=== PATIENT | male | born 1975 | race Caucasian/White ===

== ENCOUNTER 2017-11-11 14:56 | Emergency (ER) | payer SELFPAY ==
[~2017-11-11] VITALS: Ht 172.7 cm; Wt 104.2 kg
[2017-11-11] MEDS ORDERED: ASPIRIN 81 MG TABLET CHEW PO ONE (15:30)
[2017-11-11] MEDS ORDERED: MAALOX/HYOSCYAMINE/LIDOCAINE 45 ML BTL PO ONE (15:30)
[2017-11-11 16:03] LABS: BASOPHILS # (AUTO) 0.02 x10^3/uL (0-0.1); BASOPHILS % (AUTO) 0 % (0-1); EOSINOPHILS # (AUTO) 0.06 x10^3/uL (0-0.4); EOSINOPHILS % (AUTO) 1 % (1-7); LYMPHOCYTES # (AUTO) 1.77 x10^3/uL (1-3.4); LYMPHOCYTES % (AUTO) 16 % (22-44); MD NO; MEAN CORPUSCULAR HEMOGLOBIN 31.4 pg (27.5-34.5); MEAN CORPUSCULAR HGB CONC 34.1 g/dL (33.2-36.2); MEAN CORPUSCULAR VOLUME 92.2 fL (81-97); MEAN PLATELET VOLUME 7.7 fL (7.4-10.4); MONOCYTES # (AUTO) 0.55 x10^3/uL (0.2-0.8); MONOCYTES % (AUTO) 5 % (2-9); NEUTROPHILS # (AUTO) 9.01 x10^3/uL (1.8-6.8); NEUTROPHILS % (AUTO) 79 % (42-75); PLATELET COUNT 285 x10^3/uL (130-400); RED CELL DISTRIBUTION WIDTH 13.5 % (9.4-14.8)
[2017-11-11 16:16] LABS: CHLORIDE 107 mmol/L (98-107)
[2017-11-11 16:35] LABS: ALANINE AMINOTRANSFERASE 34 U/L (12-78); ALBUMIN 4.1 g/dL (3.4-5.0); ALKALINE PHOSPHATASE 39 U/L (45-117); ANION GAP 6 mmol/L (5-15); BILIRUBIN,TOTAL 0.9 mg/dL (0.2-1.0); CALCIUM 8.9 mg/dL (8.5-10.1); CREATININE 1.27 mg/dL (0.7-1.3); TROPONIN I < 0.015 ng/mL (0.000-0.045)
[2017-11-11] MEDS ORDERED: MAALOX/HYOSCYAMINE/LIDOCAINE 45 ML BTL ONE (18:17)
[2017-11-11] MEDS ORDERED: ASPIRIN 81 MG TABLET CHEW ONE (18:17)
[2017-11-11 19:29] VITALS: BP 144/98
== END 2017-11-11 19:33 | disposition home or self-care (01) ==
LOC: ED 19:18
DX: R07.89 Other chest pain (principal); K21.9 Gastro-esophageal reflux disease without esophagitis; F17.210 Nicotine dependence, cigarettes, uncomplicated
CPT/HCPCS: 36415; 71046; 80053; 83690; 84484; 85025; 93005; 99285

== ENCOUNTER 2018-04-06 06:31 | Observation (INO) | payer SELFPAY ==
[~2018-04-06] VITALS: Ht 175.3 cm; Wt 133.8 kg
[2018-04-06] MEDS ORDERED: DIPH,PERTUSS(ACELL),TET VAC/PF 0.5 ML IM-VACC ONE ×2 (07:00→09:20)
[2018-04-06 07:08] LABS: BASOPHILS # (AUTO) 0.02 x10^3/uL (0-0.1); BASOPHILS % (AUTO) 0 % (0-1); EOSINOPHILS # (AUTO) 0.12 x10^3/uL (0-0.4); EOSINOPHILS % (AUTO) 1 % (1-7); LYMPHOCYTES # (AUTO) 2.49 x10^3/uL (1-3.4); LYMPHOCYTES % (AUTO) 29 % (22-44); MD NO; MEAN CORPUSCULAR HEMOGLOBIN 31.8 pg (27.5-34.5); MEAN CORPUSCULAR VOLUME 93.5 fL (81-97); MEAN PLATELET VOLUME 7.8 fL (7.4-10.4); MONOCYTES % (AUTO) 6 % (2-9); NEUTROPHILS % (AUTO) 64 % (42-75); PLATELET COUNT 245 x10^3/uL (130-400); RED BLOOD COUNT 5.27 x10^6/uL (4.38-5.82)
[2018-04-06 07:17] LABS: AMPHETAMINE SCREEN, URINE Negative (Negative); BARBITURATE SCREEN, URINE Negative (Negative); BENZODIAZEPINE SCREEN, URINE Negative (Negative); CANNABINOID SCREEN, URINE Negative (Negative); COCAINE SCREEN, URINE Negative (Negative); METHADONE SCREEN, URINE Negative (Negative); OPIATE SCREEN, URINE Negative (Negative)
[2018-04-06 07:20] LABS: ALANINE AMINOTRANSFERASE 39 U/L (12-78); ALBUMIN 3.7 g/dL (3.4-5.0); ANION GAP 9 mmol/L (5-15); CALCIUM 8.2 mg/dL (8.5-10.1); CHLORIDE 107 mmol/L (98-107); CREATININE 1.28 mg/dL (0.7-1.3); SALICYLATE LEVEL 2.5 mg/dL (2.8-20.0)
[2018-04-06 07:22] LABS: ACETAMINOPHEN < 2 mcg/mL (10-30); ALKALINE PHOSPHATASE 35 U/L (45-117); BILIRUBIN,TOTAL 0.7 mg/dL (0.2-1.0); TOTAL PROTEIN 7.2 g/dL (6.4-8.2)
[2018-04-06] MEDS ORDERED: LIDOCAINE-MPF 1%, 5ML ONE (07:45)
[2018-04-06] MEDS ORDERED: ACETAMINOPHEN 325 MG TABLET PO PRN (12:30)
[2018-04-06] MEDS ORDERED: IBUPROFEN 200 MG TABLET PO PRN (12:30)
[2018-04-06 15:50] VITALS: BP 114/66
[2018-04-06] MEDS: NICOTINE 21 MG/24 HR PATCH.TD24 TD SCH (16:12)
[2018-04-06] MEDS: hydrOXyzine 10 MG/5 ML ORAL SOL PO PRN (17:59)
[2018-04-06 20:06] VITALS: BP 140/82
[2018-04-07 07:50] VITALS: BP 147/81
[2018-04-07] MEDS: NICOTINE 21 MG/24 HR PATCH.TD24 TD SCH (17:31)
[2018-04-07] MEDS: hydrOXyzine 10 MG/5 ML ORAL SOL PO PRN (18:04)
[2018-04-07 19:39] VITALS: BP 117/62
[2018-04-08] MEDS: NICOTINE 21 MG/24 HR PATCH.TD24 TD SCH (09:00)
[2018-04-08 09:35] VITALS: BP 174/88
[2018-04-08 19:54] VITALS: BP 138/93
[2018-04-08] MEDS: hydrOXyzine 10 MG/5 ML ORAL SOL PO PRN (21:02)
[2018-04-08] MEDS: LORazepam INTENSOL 2 MG/ML PO PRN (21:02)
[2018-04-09 07:53] VITALS: BP 110/77
[2018-04-09] MEDS ORDERED: NICOTINE 21 MG/24 HR PATCH.TD24 ONE (08:15)
[2018-04-09] MEDS: NICOTINE 21 MG/24 HR PATCH.TD24 TD SCH (08:17)
[2018-04-09 19:50] VITALS: BP 146/87
[2018-04-09] MEDS ORDERED: IBUPROFEN 200 MG TABLET ONE (20:13)
[2018-04-09] MEDS: LORazepam INTENSOL 2 MG/ML PO PRN (20:17)
[2018-04-09] MEDS ORDERED: IBUPROFEN 600 MG TABLET ONE (20:17)
[2018-04-09] MEDS: hydrOXyzine 10 MG/5 ML ORAL SOL PO PRN (20:18)
[2018-04-09] MEDS ORDERED: ACETAMINOPHEN 325 MG TABLET ONE (20:26)
[2018-04-10 07:15] VITALS: BP 117/81
[2018-04-10] MEDS: NICOTINE 21 MG/24 HR PATCH.TD24 TD SCH ×2 (09:00→09:45)
[2018-04-10] MEDS ORDERED: NICOTINE 21 MG/24 HR PATCH.TD24 ONE (09:43)
[2018-04-10 19:32] VITALS: BP 122/81
[2018-04-10] MEDS: LORazepam INTENSOL 2 MG/ML PO PRN (21:14)
[2018-04-10] MEDS: hydrOXyzine 10 MG/5 ML ORAL SOL PO PRN (21:14)
[2018-04-11 07:57] VITALS: BP 145/97
[2018-04-11] MEDS: NICOTINE 21 MG/24 HR PATCH.TD24 TD SCH (09:00)
[2018-04-11 14:54] VITALS: BP 143/85
[2018-04-11 20:19] VITALS: BP 141/92
[2018-04-11] MEDS: LORazepam INTENSOL 2 MG/ML PO PRN (21:22)
[2018-04-11] MEDS: hydrOXyzine 10 MG/5 ML ORAL SOL PO PRN (21:22)
[2018-04-12 08:25] VITALS: BP 117/81
[2018-04-12] MEDS: NICOTINE 21 MG/24 HR PATCH.TD24 TD SCH (09:00)
[2018-04-12 19:15] VITALS: BP 156/85
[2018-04-12] MEDS: hydrOXyzine 10 MG/5 ML ORAL SOL PO PRN (20:28)
[2018-04-13 08:32] VITALS: BP 164/84
[2018-04-13] MEDS: NICOTINE 21 MG/24 HR PATCH.TD24 TD SCH (09:39)
[2018-04-13] MEDS ORDERED: NICO-487 TD (12:07)
== END 2018-04-13 13:00 | disposition home or self-care (01) ==
LOC: ED 07:16 → EDIP 11:50 → INTOOBSV 12:25 → OBSVTOIN 12:25 → 2N 14:45 → UNDODISOB 04-08 15:43
PROVIDERS: ADMIT Family Medicine; ATTEND Family Medicine
DX: F32.9 Major depressive disorder, single episode, unspecified (principal); R45.851 Suicidal ideations; I10 Essential (primary) hypertension; K21.9 Gastro-esophageal reflux disease without esophagitis; J30.2 Other seasonal allergic rhinitis; F17.210 Nicotine dependence, cigarettes, uncomplicated; F41.9 Anxiety disorder, unspecified; E66.01 Morbid (severe) obesity due to excess calories; F17.200 Nicotine dependence, unspecified, uncomplicated; T14.91XA Suicide attempt, initial encounter; X78.8XXA Intentional self-harm by other sharp object, initial encounter; Z23 Encounter for immunization
CPT/HCPCS: 36415; 80053; 80307; 80329; 85025; 90471; 90715; 99285; G0378; Q0177; G0480